=== PATIENT | female | born 1965 | race Caucasian/White ===

== ENCOUNTER 2017-02-27 02:42 | Emergency (ER) | payer OTHER ==
[2017-02-27 03:05] LABS: Bilirubin Negative (Negative); Blood, Urine Negative (Negative); Glucose, Urine (Dipstick) Negative (Negative); Ketone, Urine Negative (Negative); Nitrite Negative (Negative); Protein, Urine (Dipstick) Negative (Neg-Trace); Urobilinogen 0.2 mg/dL (0.2-1.0)
[2017-02-27 03:09] LABS: #Eosinphils 0.1 thou/uL (0.0-0.7); #Lymphocytes 2.1 thou/uL (1.20-3.40); #Monocytes 0.5 thou/uL (0.11-0.59); #Neutrophils 5.8 thou/uL (1.40-6.50); %Basophils 0.5 % (0.0-1.0); %Eosinophils 1.4 % (0.0-10.0); %Lymphocytes 24.4 % (21.0-51.0); %Monocytes 5.4 % (0.0-10.0); Hematocrit 42.9 % (36.0-47.0); Mean Platelet Volume 6.4 fL (7.4-10.4); Red Blood Cell (RBC) Count 5.02 mill/uL (4.20-5.40); White Blood Cell (WBC) Count 8.5 thou/uL (4.8-10.8)
[2017-02-27 03:35] LABS: ALT (SGPT) 7 U/L (8-55); AST (SGOT) 6 U/L (5-34); Alkaline Phosphatase 58 U/L (40-150); Anion Gap 13 mmol/L (10-20); BUN (Urea Nitrogen) 9 mg/dL (7.0-18.7); Bilirubin, Total 0.2 mg/dL (0.2-1.2); Calc. Creatinine Clearance 0 mL/min (70-130); Calcium 9.5 mg/dL (7.8-10.44); Carbon Dioxide 22 mmol/L (22-29); Chloride 107 mmol/L (98-107); Estimated GFR-MDRD 78; Globulin 2.4 g/dL (2.4-3.5); Protein, Total 6.4 g/dL (6.0-8.3)
[2017-02-27] MEDS ORDERED: Morphine 4 MG/ML VIAL ONE (04:50)
[2017-02-27] MEDS ORDERED: Ondansetron HCl/PF 4 MG/2 ML Vial ONE (04:50)
--- NOTE | 2017-02-27 08:02 | CT ---
PRELIMINARY REPORT/[facility]/EMERGENCY AFTER HOURS PROCEDURE: EXAM: CT Abdomen and Pelvis With Intravenous Contrast EXAM DATE/TIME: Exam ordered 02/27/2017 5:08 AM CLINICAL HISTORY: 52 years old, female; Pain; Abdominal pain; Epigastric; Prior surgery; Patient HX: Er 3; 52 yo f pres ents to ed C/O abdominal pain. Pt has h/o crohns which is untreated due to h/o ms. Pt states she laid down this evening to sleep and was unable to get comfortable due to pain. Last week pt was seen for epigastric pain and prescriped dexilant which pt has been taking for a week. Last colonoscopy was in 2014. Pt concerned for bowel obstruction as she usually has no problems with bms but recently has bee n unable to go. TECHNIQUE: Axial computed tomography images of the abdomen and pelvis with intravenous contrast. Coronal reformatted images were created and reviewed. CONTRAST: 95 mL of ISOVUE 370 administered intravenously. COMPARISON: No relevant prior studies available. FINDINGS: Lower thorax: The visualized portions of the lung bases are normal. ABDOMEN: Liver: There are no focal liver lesions present. Gallbladder and bile ducts: The gallbladder is normal. There is no evidence of biliary ductal dilatio n. No calcified stones. Pancreas: The pancreas is normal. No ductal dilation. Spleen: The spleen is normal. Adrenals: The adrenal glands are normal. Kidneys and ureters: The kidneys are normal. No hydronephrosis. Stomach and bowel: There is bowel wall thickening/edema of the distal ileum compatible with Crohn's f lare in this patient with Crohn's disease. The stomach is normal. The duodenum is unremarkable. There is dilatation of the distal small bowel up to 3.6 cm compatible with ileus. Appendix: No findings to suggest acute appendicitis. PELVIS: Bladder: The bladder is normal. Reproductive: Unremarkable as visualized. ABDOMEN and PELVIS: Intraperitoneal space: There is a small amount of free pelvic fluid present. No free air. Bones/joints: No acute fracture. No dislocation. Soft tissues: Normal. Vasculature: Normal. No abdominal aortic aneurysm. Lymph nodes: Normal. No enlarged lymph nodes. IMPRESSION: There is bowel wall thickening/edema of the distal ileum compatible with Crohn's flare in this patien t with Crohn's disease. Thank you for allowing us to participate in the care of your patient. Dictated and Authenticated by: Ryan Zaman MD 02/27/2017 5:24 AM Central Time ([place] & [place]) FINAL REPORT ABDOMEN CT WITH CONTRAST PELVIC CT WITH CONTRAST: Date: 02/27/17 HISTORY: Abdominal pain. History of Crohn's disease. COMPARISON: None. TECHNIQUE: An abdomen and pelvis CT are performed with IV contrast. Enteric contrast was not administered. Coron al reformatted images are submitted for interpretation. FINDINGS: This report is in agreement with the preliminary report by Raman. There is mucosal thickening and corin a along the distal and terminal ileum, compatible with an acute flare of Crohn's disease. There is as sociated dilatation which may be due to small bowel ileus. Normal caliber appendix is identified. The re are enlarged abdominal lymph nodes (2.1 x 1.2 cm) which are presumed to be reactive. Follow-up dougie ging can be performed to ensure resolution of the aforementioned lymph nodes once acute bout of Crohn 's disease resolves. Trace amount of free fluid in the pelvis is noted. CODE T. POS: PPP
[2017-02-27] MEDS ORDERED: ISOVUE-370 76%-LOCM 1 ML ONE (11:43)
== END 2017-02-27 05:57 | disposition home or self-care (01) ==
LOC: ERS 02:42
DX: K50.90 Crohn's disease, unspecified, without complications (principal); F41.9 Anxiety disorder, unspecified; F32.9 Major depressive disorder, single episode, unspecified; F17.210 Nicotine dependence, cigarettes, uncomplicated; Z79.899 Other long term (current) drug therapy
CPT/HCPCS: 36415; 74177; 80053; 81003; 83690; 85025; 96361; 96374; 96375; 99406; J2270; J2405